=== PATIENT | female | born 1980 | race Caucasian/White ===

== ENCOUNTER 2019-02-10 19:33 | Inpatient (IN) | payer OTHER ==
[~2019-02-10] VITALS: Ht 157.5 cm; Wt 57.0 kg
[~2019-02-10 19:33] MED LIST: BEN25 PO; HC1C30 TOP
[2019-02-10] MEDS ORDERED: SODIUM CHLORIDE 0.9% 1L BAG IV* STA (19:46)
[2019-02-10] MEDS ORDERED: ACETAMINOPHEN 500 MG TAB PO STA (19:46)
[2019-02-10] MEDS ORDERED: KETOROLAC 15 MG INJ IV STA (19:46)
[2019-02-10] MEDS ORDERED: ONDANSETRON 4 MG INJ IV STA (19:55)
[2019-02-10] MEDS ORDERED: HYDROmorphONE 2 MG/ML SYG IV STA (19:55)
[2019-02-10] MEDS ORDERED: PIPER-TAZO 3.375 GM IV (PMX) 100 ML IVPB ONE (20:00)
--- NOTE | 2019-02-10 20:25 | ERD ---
ER Documentation Chief Complaint Chief Complaint LOWER RIGHT PELVIC PAIN X 2 DAYS, SPOTTING HPI 38-year-old female presents to the emergency room with right lower quadrant abdominal pelvic pain for approximately 1 day. Patient describes a mild vague abdominal discomfort yesterday. Today much more significant right lower quadrant abdominal pain that is 10 out of 10 without migratory symptoms. Patient describes no dysuria urgency or frequency. Mild vaginal spotting but no vaginal discharge. She denies any flank pain or colicky pain. ROS All systems reviewed and are negative except as per history of present illness. Medications Home Meds Discontinued Scripts Hydrocortisone* Topical (Hydrocortisone* Topical) 1%-28.35 Gm Cream..g., 1 APPLIC TOP Q6 PRN for ITCHING, #1 TUB Prov:ELLIEGRACIADAVID C 09/03/15 Diphenhydramine Hcl* (Benadryl*) 25 Mg Cap, 25 MG PO Q6, #30 CAP Prov:ELLIE,DAVID C 09/03/15 Allergies Allergies: Coded Allergies: No Known Allergy (Unverified , 02/10/19) PMhx/Soc Medical and Surgical Hx: pt denies Surgical Hx History of Surgery: No Anesthesia Reaction: No Hx Neurological Disorder: No Hx Respiratory Disorders: No Hx Cardiac Disorders: Yes (HTN ) Hx Psychiatric Problems: No Hx Miscellaneous Medical Probl: No Hx Alcohol Use: Yes (ETOH OCCASIONALLY ) Hx Substance Use: Yes (METHAMPHETAMINE DAILY ) Hx Tobacco Use: Yes (CIGARETTES DAILY ) Smoking Status: Current every day smoker FmHx Family History: No diabetes Physical Exam Vitals Vital Signs Date Temp Pulse Resp B/P (MAP) Pulse Ox O2 O2 Flow FiO2 Time Delivery Rate 02/10/19 98.1 97 15 128/93 100 Room Air 23:25 (105) 02/10/19 103.1 20 137/89 99 20:50 (105) 02/10/19 103.1 124 20 137/89 99 19:42 (105) Physical Exam General: Very uncomfortable, diaphoretic Head: Normocephalic, atraumatic. Eyes: Pupils equally reactive, EOM intact ENT: Moist mucous membranes Neck: Supple, no lymphadenopathy Respiratory: Lungs clear bilaterally, no distress Cardiovascular: Tachycardia, no murmurs, rubs, or gallops Abdominal: Soft, focal tenderness of the right lower quadrant of the abdomen near McBurney's point possibly slightly inferior to, voluntary guarding Back: No CVAT : Deferred MSK: No edema, no unilateral swelling, 5/5 strength Neurologic: Alert and oriented, moving all extremities, normal speech, no focal weakness, no cerebellar signs Skin: No rash Psych: Normal mood Result Diagram: 02/10/19195502/10/191955 Results 24 hrs Laboratory Tests Test 02/10/19 19:56 02/10/19 19:57 02/10/19 20:03 02/10/19 22:30 White Blood Count 19.6 10^3/ul Red Blood Count 6.69 10^6/ul Hemoglobin 12.2 g/dl Hematocrit 42.2 % Mean Corpuscular 63.1 fl Volume Mean Corpuscular 18.2 pg Hemoglobin Mean Corpuscular 28.9 g/dl Hemoglobin Concen t Red Cell 21.1 % Distribution Width Platelet Count 327 10^3/UL Mean Platelet 8.9 fl Volume Immature 0.900 % Granulocytes % Neutrophils % 86.9 % Lymphocytes % 5.5 % Monocytes % 5.5 % Eosinophils % 0.7 % Basophils % 0.5 % Nucleated Red 0.0 /100WBC Blood Cells % Immature 0.180 10^3/ul Granulocytes # Neutrophils # 17.0 10^3/ul Lymphocytes # 1.1 10^3/ul Monocytes # 1.1 10^3/ul Eosinophils # 0.1 10^3/ul Basophils # 0.1 10^3/ul Nucleated Red 0.0 10^3/ul Blood Cells # Prothrombin Time 12.8 Sec Prothrombin Time 1.0 Ratio INR International 0.95 Normalized Ratio Activated 29.1 Sec Partial Thrombopl ast Time Sodium Level 138 mmol/L Potassium Level 4.1 mmol/L Chloride Level 98 mmol/L Carbon Dioxide 27 mmol/L Level Anion Gap 13 Blood Urea 11 mg/dl Nitrogen Creatinine 0.84 mg/dl Est Glomerular > 60 mL/min Filtrat Rate mL/min Glucose Level 120 mg/dl Lactic Acid Level 1.6 mmol/L 1.0 mmol/L Calcium Level 9.7 mg/dl Total Bilirubin 0.6 mg/dl Direct Bilirubin 0.00 mg/dl Indirect 0.6 mg/dl Bilirubin Aspartate Amino 20 IU/L Transf (AST/SGOT) Alanine 16 IU/L Aminotransferase (ALT/SGPT) Alkaline 131 IU/L Phosphatase Troponin I < 0.012 ng/ml Total Protein 8.3 g/dl Albumin 4.5 g/dl Globulin 3.80 g/dl Albumin/Globulin 1.18 Ratio Serum HCG, NEGATIVE Qualitative Urine Color YELLOW Urine Clarity CLOUDY Urine pH 7.0 Urine Specific 1.030 Orrick Urine Ketones NEGATIVE mg/dL Urine Nitrite POSITIVE mg/dL Urine Bilirubin NEGATIVE mg/dL Urine 1+ mg/dL Urobilinogen Urine Leukocyte TRACE Nela/ul Esterase Urine Microscopic > 182 /HPF RBC Urine Microscopic 20 /HPF WBC Urine Squamous FEW /HPF Epithelial Cells Urine Bacteria FEW /HPF Urine Mucus MANY /HPF Urine Hemoglobin 3+ mg/dL Urine Glucose NEGATIVE mg/dL Urine Total 2+ mg/dl Protein POC Beta HCG, NEGATIVE Qualitative Current Medications Medications Dose Sig/Mitali Start Time Status Last (Trade) Ordered Route PRN Stop Time Admin Dose Reason Admin Sodium 1,700 ml BOLUS OVER 2 02/10/19 DC 02/10/19 Chloride HOURS STAT 19:46 20:13 (NS) IV* 02/10/19 19:48 1,000 mg ONCE STAT 02/10/19 DC Acetaminophen PO 19:46 (Tylenol 02/10/19 19:48 Tab) Ketorolac 15 mg ONCE STAT 02/10/19 DC 02/10/19 Tromethamine IV 19:46 20:12 (Toradol) 02/10/19 19:48 Piperacillin 100 ml @ ONCE ONCE 02/10/19 DC 02/10/19 Sod/ 200 mls/hr IVPB 20:00 20:13 Tazobactam 02/10/19 20:29 Sod 1 mg ONCE STAT 02/10/19 DC 02/10/19 Hydromorphone IV 19:55 20:13 HCl 02/10/19 19:56 (Dilaudid) Ondansetron 4 mg ONCE STAT 02/10/19 DC 02/10/19 HCl (Zofran IV 19:55 20:13 Inj) 02/10/19 19:56 1 mg ONCE ONCE 02/10/19 DC Hydromorphone IV 23:09 HCl 02/10/19 23:10 (Dilaudid) Ampicillin 100 ml @ ONCE ONCE 02/10/19 100 mls/hr IVPB 23:30 02/11/19 00:29 Clindamycin 50 ml @ 50 ONCE IVPB 02/10/19 HCl/ mls/hr 23:30 Dextrose 02/11/19 00:29 Gentamicin 102.8 ml @ ONCE ONCE 02/10/19 Sulfate 112 102.8 mls/ IVPB 23:30 mg/ Sodium hr 02/11/19 00:29 Chloride Ondansetron 4 mg BRIDGE ORDER 02/10/19 HCl (Zofran PRN IV 23:30 Inj) NAUSEA/VOMITI 02/11/19 23:29 NG 650 mg ER BRIDGE 02/10/19 Acetaminophen PRN PO 23:30 (Tylenol .MILD PAIN 02/11/19 23:29 Tab) 1-3 OR TEMP Procedures/MDM EKG, MONITORS, & DIAGNOSTIC IMAGING: EKG: I reviewed and interpreted a 12-lead EKG. Rhythm: Sinus tachycardia ST Changes: No contiguous ST segment elevations T waves: No contiguous T wave inversions Impression: No evidence of acute cardiac ischemia Chest x-ray: I reviewed and interpreted a 1 view of the chest Mediastinum: No enlargement Cardiac silhouette: No cardiomegaly Airspace: Clear lung kirk bilaterally without evidence of pneumothorax Bones: No evidence of fracture CT abdomen and pelvis: IMPRESSION: Trace pelvic free fluid. Otherwise no acute abnormality identified within the abdomen and pelvis. A normal appendix is identified. US pelvis IMPRESSION: Large complex multi septated tubular structure in the right adnexa, between the right ovary and the uterus, suspicious for a dilated fallopian tube. The findings may represent inflammatory disease and a tubo-ovarian abscess. Moderate amount of free fluid in the pelvis. Further evaluation with pelvic MRI with contrast is recommended. LAB INTERPRETATION: I reviewed the laboratory testing and it shows leukocytosis, normal lactic acid MEDICAL DECISION MAKING: Patient presents with fever, right lower quadrant abdominal pain. Patient has Sirs criteria with potential source of infection. Code sepsis was initiated. Differential is broad but given vague abdominal pain yesterday and pain and fever today to the right lower quadrant strong concern for appendicitis versus perforation. Empiric Zosyn provided. Consider possible ovarian process but less likely cyst or torsion. Patient denies any vaginal discharge, PID is possible but unlikely in this case. Consider possible renal process such as acute pyelonephritis but focal pain to the right lower quadrant suggest more acute intra-abdominal process such as appendicitis. For this reason I will proceed with CT rather than pelvic ultrasound imaging. ER COURSE: * 30 cc/kg bolus of saline provided, blood cultures prior to Zosyn. Antipyretics and pain control medication provided. * The patient's CAT scan showed no evidence of acute appendicitis. This prompted pelvic ultrasound to evaluate for pelvic process such as PID or TOA. * Ultrasound shows evidence of TOA. Pelvic examination shows right adnexal tenderness. Cultures have been sent. * PATROL SERGEANT on-call, Dr. Muir was notified. He recommends transition to triple therapy including ampicillin, clindamycin, gentamicin. Initial dosing in the ER has been ordered. Patient received repeat dosing of pain medication. Inpatient hospitalization appropriate. CONSULTATION: None DISPOSITION PLAN: Accepting care team and consultations: I discussed the current laboratory data, diagnostic imaging and emergency care p rovided. Admitting team: Dr Smith Admitting team indication: Insurance directed Sepsis Documentation: Patient's infectious symptoms have not stabilized and the patient is at risk of rapid decompensation. The patient will be admitted for careful hydration, antibiotic therapy, and infectious source control. SEVERE SEPSIS CRITERIA: Infectious source: Tubo-ovarian abscess End organ damage indicated by: None indicated currently SEPSIS MANAGEMENT Time of recognition of sepsis: Upon MD assessment. Time of recognition of severe sepsis: No severe sepsis at this time. Time of recognition of septic shock: No septic shock at this time. 3 HOUR BUNDLE Blood cultures x 2 before broad-spectrum antibiotics: Yes 30 ml/kg NS bolus completed Initial lactate less than 2 Repeat lactate less than 2 SEPTIC SHOCK ASSESSMENT: No lactic acid > 4.0 No persistent hypotension (SBP < 90 or 40 mmHg drop, MAP < 65) despite 30 mL/kg IV fluid bolus VOLUME REASSESSMENT FOR SEPTIC SHOCK: The patient does not meet criteria for septic shock in the emergency department at this time PERSISTENT HYPOTENSION TREATMENT: Comfort care no Central line not Required Vasopressor started not required I considered further perfusion assessment with CVP measurement, SCVO2, bedside ultrasound volume assessment, passive leg raise, trial of further fluid bolus. And proceeded with 30 ml/kg fluid bolus of NSS, broad spectrum antibiotics, and admission. CRITICAL CARE Critical care time 35 minutes Emergent fluid management while maintaining close respiratory support. Provision of immediate and broad-spectrum antibiotic therapy. Simultaneous assessment for possible sources in order to direct targeted therapy. Consideration for invasive and chemical support to prevent cardiopulmonary collapse. Critical care time is independent of procedures performed. Departure Diagnosis: Primary Impression: Right tubo-ovarian abscess Additional Impressions: Sepsis Sepsis type: sepsis due to unspecified organism Qualified Codes: A41.9 - Sepsis, unspecified organism Acute pain in female pelvis Condition: Stable SAVANNA PEREIRA MD Feb 10, 2019 20:25
[2019-02-10] MEDS ORDERED: HYDROmorphONE 1 MG/ML SYG IV ONE (23:09)
[2019-02-10] MEDS ORDERED: AMPICILLIN 2 GM/NS (PMX) 100 ML IVPB ONE (23:30)
[2019-02-10] MEDS ORDERED: ACETAMINOPHEN 325 MG TAB PO PRN (23:30)
[2019-02-10] MEDS ORDERED: ONDANSETRON 4 MG INJ IV PRN (23:30)
[2019-02-10] MEDS ORDERED: CLINDAMYCIN 900 MG/D5W (PMX) 50 ML IVPB SCH (23:30)
[2019-02-10] MEDS ORDERED: SOD CHLORIDE 0.9% IVPB ONE (23:30)
[2019-02-10] MEDS ORDERED: GENTAMICIN IVPB ONE (23:30)
[2019-02-11 00:51] VITALS: Ht 157.5 cm; Wt 57.0 kg
[2019-02-11 00:52] VITALS: BP 118/65; PULSE 99; RESP 18
[2019-02-11 02:52] VITALS: BP 125/70; PULSE 102; RESP 19
[2019-02-11] MEDS ORDERED: DIPHENHYDRAMINE 50 MG INJ IV PRN (03:00)
[2019-02-11] MEDS ORDERED: morphine 2 MG INJ IV PRN (03:00)
--- NOTE | 2019-02-11 03:26 | HP ---
DATE OF ADMISSION: 02/10/2019 CHIEF COMPLAINT: Pelvic pain. HISTORY OF PRESENT ILLNESS: A 38-year-old female 3, para 3, last menstrual period 01/13/2019 , presented to the emergency department with complaint of a 3-day history of pelvic pain. The patien t denies any nausea or vomiting. PAST MEDICAL HISTORY: Unremarkable. PAST SURGICAL HISTORY: Unremarkable. ALLERGIES: NO KNOWN ALLERGIES. FAMILY HISTORY: Noncontributory. PHYSICAL EXAMINATION: VITAL SIGNS: The patient had temperature of 103.1 in the emergency department. Vital signs stable. HEAD, NECK AND CHEST: Within normal limits. ABDOMEN: Soft. There is tenderness in the lower abdomen. PELVIC: Cervix is closed. EXTREMITIES: Within normal limits. NEUROLOGIC: Within normal limits. DIAGNOSTIC DATA: Workup in the emergency department included a test was negative. WBC 19. 6. A pelvic ultrasound revealed large complex multiseptated tubular structure in the right adnexa be tween right ovary and uterus suspicious for dilated fallopian tube. Findings may represent inflammat ory disease and tubo-ovarian abscess. IMPRESSION: Rule out tubo-ovarian abscess. PLAN: Admit, intravenous ampicillin, gentamicin and clindamycin. MRI of the pelvis for further eval uation of the pelvic mass. Dictated By: ILIANA HANDY/NTS Conf#: [id number] DID#: [id number]
[2019-02-11] MEDS ORDERED: CLINDAMYCIN 900 MG/D5W (PMX) 50 ML IVPB SCH (06:00)
[2019-02-11] MEDS ORDERED: GENTAMICIN 80 MG/NS (PMX) 50 ML IVPB ONE (08:00)
[2019-02-11] MEDS ORDERED: AMPICILLIN/SULB 1.5GM/NS (PMX) 50 ML IVPB SCH (12:00)
[2019-02-12] MEDS ORDERED: IBUP-1542 PO (03:38)
== END 2019-02-11 05:35 | disposition left against medical advice (07) | DRG 759 ==
LOC: E/R 19:33 → MS1 23:23
PROVIDERS: ADMIT Obstetrics & Gynecology; ATTEND Obstetrics & Gynecology
DX: N70.93 Salpingitis and oophoritis, unspecified (principal)
CPT/HCPCS: 36415; 71045; 74176; 76830; 76856; 80053; 81001; 81025; 83605; 84484; 84703; 85025; 85610; 85730; 87040; 87070; 87081; 87086; 87210; 87220; 87591; 93005; 96361; 96374; 96375; J0290; J0295; J1170; J1200; J1580; J1885; J2405; J2543; J7030

== ENCOUNTER 2019-02-11 23:31 | Inpatient (IN) | payer OTHER ==
[~2019-02-11] VITALS: Ht 157.5 cm; Wt 57.0 kg
[2019-02-11] MEDS ORDERED: SODIUM CHLORIDE 0.9% 1L BAG IV* STA (23:48)
[2019-02-11] MEDS ORDERED: GENTAMICIN 80 MG/NS (PMX) 50 ML IVPB STA (23:58)
[2019-02-11] MEDS ORDERED: CLINDAMYCIN 900 MG/D5W (PMX) 50 ML IVPB STA (23:58)
[2019-02-11] MEDS ORDERED: AMPICILLIN 2 GM/NS (PMX) 100 ML IVPB STA (23:58)
[2019-02-12] MEDS ORDERED: ACETAMINOPHEN 325 MG TAB PO PRN
[2019-02-12] MEDS ORDERED: ACETAMINOPHEN 325 MG TAB PO ONE
[2019-02-12] MEDS: ONDANSETRON 4 MG INJ IV STA ×2 (00:17→00:50)
[2019-02-12] MEDS: morphine 4 MG/ML VIAL IV STA ×2 (00:17→00:50)
--- NOTE | 2019-02-12 00:31 | ERD ---
ER Documentation Chief Complaint Chief Complaint right lower abd pain. admitted yesterday but left ama HPI This is a 38-year-old female with a past medical history of hypertension, polysubstance abuse who is presenting with persistent right lower quadrant abdominal pelvic pain over the last 1-2 days. The patient was evaluated yest scarlettay in the emergency department by Dr. Gordillo and was diagnosed with a tubo- ovarian abscess. The patient was given antibiotics and admitted to the gynecology service. Unfortunately, the patient became anxious this morning and left AGAINST MEDICAL ADVICE. The patient continues to endorse significant 10 out of 10 nonradiating right lower quadrant abdominal pain. She has had mild vaginal spotting but no discharge. She does not endorse any dysuria or hematuria or urgency or frequency. She does not endorse any flank pain. She does not endorse any constipation or diarrhea. She does not endorse any black or bloody or tarry stools. The patient does admit to fever and chills today. She is tachycardic in the triage area. The patient has had no headache or vision changes. The patient does not endorse neck or back pain. The patient denies lightheadedness or dizziness. The patient has had no chest pain or trouble breathing. The patient denies nausea or vomiting. The patient has had no focal deficits. The patient has had no weakness or numbness or tingling to the face or extremities. ROS All systems reviewed and are negative except as per history of present illness. Medications Home Meds Discontinued Scripts Hydrocortisone* Topical (Hydrocortisone* Topical) 1%-28.35 Gm Cream..g., 1 APPLIC TOP Q6 PRN for ITCHING, #1 TUB Prov:ELLIE,DAVID C 09/03/15 Diphenhydramine Hcl* (Benadryl*) 25 Mg Cap, 25 MG PO Q6, #30 CAP Prov:ELLIE,DAVID C 09/03/15 Allergies Allergies: Coded Allergies: No Known Allergy (Unverified , 02/10/19) PMhx/Soc History of Surgery: No Anesthesia Reaction: No Hx Neurological Disorder: No Hx Respiratory Disorders: No Hx Cardiac Disorders: Yes (HTN) Hx Psychiatric Problems: No Hx Miscellaneous Medical Probl: No Hx Alcohol Use: Yes (SOCIAL) Hx Substance Use: Yes (METHAMPHETAMINE) Hx Tobacco Use: Yes FmHx Family History: No diabetes Physical Exam Vitals Vital Signs Date Temp Pulse Resp B/P (MAP) Pulse Ox O2 O2 Flow FiO2 Time Delivery Rate 02/12/19 99.9 00:17 02/11/19 100.5 110 18 118/77 99 23:36 (91) Physical Exam Const: Mild distress secondary to pain, well-developed, well-nourished Head: Normocephalic, Atraumatic Eyes: Normal Conjunctiva. Extraocular movements grossly intact. ENT: Normal External Ears, Nose and Mouth. Neck: Full range of motion. No meningismus. Resp: Clear to auscultation bilaterally, No wheezes, rales or rhonchi Cardio: Regular rhythm. Mild tachycardia. No murmurs, rubs or gallops Abd: Soft, non distended. Right lower quadrant abdominal tenderness. No mirian ound or guarding. Normal bowel sounds Skin: No petechiae or rashes Back: No midline tenderness. No CVA tenderness Ext: No cyanosis, or edema Neur: Awake and alert, oriented 4. Cranial nerves intact. No facial droop. Normal strength, sensation and coordination. Psych: Anxious Result Diagram: 02/12/19 0002 02/12/19 0002 Results 24 hrs Laboratory Tests Test 02/11/19 00:13 02/12/19 00:01 02/12/19 00:02 Urine Color GANESH Urine Clarity CLOUDY Urine pH 5.0 Urine Specific [place] 1.026 Urine Ketones NEGATIVE mg/dL Urine Nitrite NEGATIVE mg/dL Urine Bilirubin NEGATIVE mg/dL Urine Urobilinogen NEGATIVE mg/dL Urine Leukocyte Esterase 2+ Nela/ul Urine Microscopic RBC > 182 /HPF Urine Microscopic WBC 59 /HPF Urine Squamous Epithelial Cells MODERATE /HPF Urine Mucus FEW /HPF Urine Hemoglobin 3+ mg/dL Urine Glucose NEGATIVE mg/dL Urine Total Protein 2+ mg/dl Prothrombin Time 13.2 Sec Prothrombin Time Ratio 1.0 INR International 0.99 Normalized Ratio Activated Partial Thromboplast 34.5 Sec Time Lactic Acid Level 1.1 mmol/L White Blood Count 14.1 10^3/ul Red Blood Count 5.61 10^6/ul Hemoglobin 10.1 g/dl Hematocrit 35.2 % Mean Corpuscular Volume 62.7 fl Mean Corpuscular Hemoglobin 18.0 pg Mean Corpuscular 28.7 g/dl Hemoglobin Concent Red Cell Distribution Width 20.5 % Platelet Count 298 10^3/UL Mean Platelet Volume 9.5 fl Immature Granulocytes % 0.700 % Neutrophils % 83.2 % Lymphocytes % 8.6 % Monocytes % 5.7 % Eosinophils % 1.4 % Basophils % 0.4 % Nucleated Red Blood Cells % 0.0 /100WBC Immature Granulocytes # 0.100 10^3/ul Neutrophils # 11.8 10^3/ul Lymphocytes # 1.2 10^3/ul Monocytes # 0.8 10^3/ul Eosinophils # 0.2 10^3/ul Basophils # 0.1 10^3/ul Nucleated Red Blood Cells # 0.0 10^3/ul Sodium Level 141 mmol/L Potassium Level 3.9 mmol/L Chloride Level 103 mmol/L Carbon Dioxide Level 24 mmol/L Anion Gap 14 Blood Urea Nitrogen 9 mg/dl Creatinine 0.74 mg/dl Est Glomerular Filtrat > 60 mL/min Rate mL/min Glucose Level 103 mg/dl Calcium Level 8.9 mg/dl Total Bilirubin 0.3 mg/dl Direct Bilirubin 0.00 mg/dl Indirect Bilirubin 0.3 mg/dl Aspartate Amino 37 IU/L Transf (AST/SGOT) Alanine 28 IU/L Aminotransferase (ALT/SGPT) Alkaline Phosphatase 129 IU/L Troponin I 0.053 ng/ml Total Protein 7.1 g/dl Albumin 3.8 g/dl Globulin 3.30 g/dl Albumin/Globulin Ratio 1.15 Current Medications Medications Dose Sig/Mitali Start Time Status Last (Trade) Ordered Route PRN Stop Time Admin Dose Reason Admin Sodium 1,740 ml BOLUS OVER 2 02/11/19 DC 02/12/19 Chloride HOURS STAT 23:48 00:17 (NS) IV* 02/11/19 23:50 650 mg ONCE ONCE 02/12/19 DC 02/12/19 Acetaminophen PO 00:00 00:17 (Tylenol 02/12/19 00:01 Tab) Morphine 4 mg ONCE STAT 02/11/19 DC 02/12/19 Sulfate IV 23:48 00:50 (morphine) 02/11/19 23:50 Ondansetron 4 mg ONCE STAT 02/11/19 DC 02/12/19 HCl (Zofran IV 23:48 00:50 Inj) 02/11/19 23:50 Ampicillin 100 ml @ ONCE STAT 02/11/19 DC 02/12/19 100 mls/hr IVPB 23:58 00:55 02/12/19 00:57 Gentamicin 50 ml @ ONCE STAT 02/11/19 DC 02/12/19 Sulfate 104 mls/hr IVPB 23:58 00:21 02/12/19 00:26 Clindamycin 50 ml @ 50 ONCE STAT 02/11/19 DC HCl/ mls/hr IVPB 23:58 Dextrose 02/12/19 00:57 Ondansetron 4 mg ER BRIDGE 02/12/19 HCl (Zofran PRN IV 00:00 Inj) NAUSEA/VOMITI 02/12/19 23:59 NG 650 mg ER BRIDGE 02/12/19 Acetaminophen PRN PO 00:00 (Tylenol .MILD PAIN 02/12/19 23:59 Tab) 1-3 OR TEMP Procedures/MDM MDM The patient's presentation warrants further investigation. Previous medical records, if available, were reviewed. LABS The patient's laboratory testing was obtained and reviewed. No emergent treatment was required unless described below. CBC: Leukocytosis, concerning for an infectious pathology. Microcytic anemia, nonemergent. Normal platelet count. Chemistry: No E/o severe acidosis or alkalosis or renal failure or liver dise ase or diabetic ketoacidosis PT/INR: No E/o significant coagulopathy Lactate: No E/o severe sepsis Urine: Pyuria and hematuria, potentially from vaginal bleeding. EKG EKG read by me: Rate/Rhythm: Sinus tachycardia at 105 bpm Intervals: Normal Apex: Normal Impression: Nonspecific repolarization changes without evidence of STEMI. Sinus tachycardia. IMAGING Imaging and Radiology interpretation reviewed. CXR 1V Interpreted by me Soft Tissue: No acute abnormalities Bones: No acute abnormalities Mediastinum/Cardiac Silhouette: Unremarkable. No widened mediastinum. Lungs: No acute abnormalities. Normal pulmonary vasculature. No pneumothorax. No pulmonary edema. Clear costal diaphragmatic angles. No pleural effusions. No opacity or consolidations concerning for pneumonia. US Pelvis on 02/10/2019 FINDINGS: The uterus is normal in size with a normal appearance of the myometrium. The uterus measures 7.5 x 4.4 x 4.5 cm. There is a Nabothian cysts in the cervix. The endometrial stripe is homogeneous in appearance and has the thickness of 11 mm. The right ovary measures 3.12 1.7 x 2.8 cm. Normal Doppler flow is identified. There is a large complex multiseptated tubular structure in the right adnexa, measuring 4.3 x 4.1 cm. The left ovary was not seen. There is a moderate amount of free fluid in the pelvis. IMPRESSION: Large complex multi septated tubular structure in the right adnexa, between the right ovary and the uterus, suspicious for a dilated fallopian tube. The findings may represent inflammatory disease and a tubo-ovarian abscess. Moderate amount of free fluid in the pelvis. Further evaluation with pelvic MRI with contrast is recommended. Electronically viewed and signed by Pavan Carr MD, MD on 02/10/2019 23:01 CT Abd/Pelvis on 02/10/2019 FINDINGS: Evaluation of the lung bases demonstrates mild left basilar atelectasis. Abdomen: The liver is normal in size. There is no focal mass or dilatation of the biliary tree. The gallbladder is not distended. The spleen, pancreas and bilateral adrenal glands are within normal limits. Bilateral kidneys are normal in size with no contour deforming mass identified. There is no radiopaque renal or ureteral calculus identified. There is no hydronephrosis or hydroureter. There is no retroperitoneal adenopathy. The abdominal aorta is of normal caliber. There is no abnormal bowel wall thickening or distension. There is no bowel obstruction or free air. A normal appendix is identified. There is no diverticulosis or diverticulitis. There is no ascites. Pelvis: The bladder is unremarkable. The uterus and adnexa are within normal limits. There is trace pelvic free fluid. There is no significant pelvic adenopathy. Evaluation of the osseous structures demonstrates no suspicious lytic or blastic lesion. IMPRESSION: Trace pelvic free fluid. Otherwise no acute abnormality identified within the abdomen and pelvis. A normal appendix is identified. Electronically viewed and signed by Migue Linn MD, MD on 02/10/2019 20:38 TREATMENT/DISPOSITION The patient has a known tubo-ovarian abscess. She left AGAINST MEDICAL ADVICE this morning, but she fortunately return to the hospital. She will require admission to the gynecology service for further assessment of this. The trade specialist was consulted. Dr. Sadler recommended that the patient be given ampicillin, clindamycin and gentamicin in the emergency department. The patient is febrile and tachycardic. I am concerned about sepsis. A full septic workup was completed. In speaking with the trade specialist, no immediate imaging is warranted. She came down to the emergency department to evaluate the patient and will order any subsequent imaging as needed. SEPSIS NOTE SIRS Criteria: Tachycardia, fever Infectious source: Tubo-ovarian abscess End organ damage indicated by: None SEPSIS MANAGEMENT Time to recognize sepsis: Upon arrival. Time to recognize severe sepsis: No severe sepsis at this time. Time to recognize septic shock: No septic shock at this time. 3 HOUR BUNDLE Blood cultures x 2 before abx: Yes 30 ml/kg NS bolus completed Initial lactate 1.1 Repeat lactate not indicated SEPTIC SHOCK ASSESSMENT: NO lactic acid > 4.0 NO persistent hypotension (SBP < 90 or 40 mmHg drop, MAP < 65) despite 30 L/kg IV fluid bolus CRITICAL CARE Critical care time 35 minutes Emergent fluid management while maintaining close respiratory support. Provision of immediate and broad-spectrum antibiotic therapy. Simultaneous assessment for possible sources in order to direct targeted therapy. Consideration for invasive and chemical support to prevent cardiopulmonary collapse. Critical care time is independent of procedures performed. ADMISSION At this time, I feel that the patient requires admission for further evaluation and management. The patient will be admitted to the gynecology service. The patient was accepted by Dr. Sadler at 12:00AM on 02/12/2019. Disclaimer: Inadvertent spelling and grammatical errors are likely due to EHR/dictation software use and do not reflect on the overall quality of patient care. Note that the electronic time recorded on this note does not necessarily reflect the actual time of the patient encounter. Departure Diagnosis: Primary Impression: Tubo-ovarian abscess Additional Impressions: Sepsis Sepsis type: sepsis due to unspecified organism Qualified Codes: A41.9 - Sepsis, unspecified organism Tachycardia Fever Fever type: unspecified Qualified Codes: R50.9 - Fever, unspecified Right lower quadrant abdominal pain Leukocytosis Leukocytosis type: unspecified Qualified Codes: D72.829 - Elevated white blood cell count, unspecified Microcytic anemia Pyuria Hematuria Hematuria type: unspecified type Qualified Codes: R31.9 - Hematuria, unspecified Condition: Serious NICKY HIGH MD Feb 12, 2019 00:30
--- NOTE | 2019-02-12 01:30 | HP ---
Date/Time of Note Date/Time of Note DATE: 02/12/19 TIME: : Assessment/Plan VTE Prophylaxis SCD applied (from Nsg): No SCD contraindicated: low risk/ambulating Pharmacological prophylaxis: other Pharm contraindication: low risk/ambulating Lines/Catheters IV Catheter Type (from Nrsg): Saline Lock Central line still needed: No Urinary Cath still in place: No Assessment/Plan Hospital Course Lower abdominal pain, cervical motion tenderness, ultrasound consistent with free fluid in pyosalpinx Exam consistent with PID/hydrosalpinx Patient will be admitted for treatment of PID Be started on triple antibiotics. IV clindamycin/gentamicin/ampicillin STD screening, occluding HIV. Patient appears high risk. Labs requested Urine will be sent for gonorrhea chlamydia screening as well Pain control Antiemetic as needed Plan of care discussed with the patient. We will continue to follow-up Problems: (1) Tubo-ovarian abscess Status: Acute (2) PID (acute pelvic inflammatory disease) Status: Acute (3) Right lower quadrant abdominal pain Status: Acute (4) Sepsis Status: Acute Qualifiers: Sepsis type: sepsis due to unspecified organism Qualified Codes: A41.9 - Sepsis, unspecified organism Result Diagram: 02/12/19 0002 02/12/19 0002 Results 24hrs Laboratory Tests Test 02/12/19 00:01 02/12/19 00:02 Prothrombin Time 13.2 Prothrombin Time Ratio 1.0 INR International Normalized Ratio 0.99 Activated Partial Thromboplast Time 34.5 Lactic Acid Level 1.1 White Blood Count 14.1 #H Red Blood Count 5.61 H Hemoglobin 10.1 L Hematocrit 35.2 L Mean Corpuscular Volume 62.7 L Mean Corpuscular Hemoglobin 18.0 L Mean Corpuscular Hemoglobin Concent 28.7 L Red Cell Distribution Width 20.5 H Platelet Count 298 Mean Platelet Volume 9.5 Immature Granulocytes % 0.700 H Neutrophils % 83.2 H Lymphocytes % 8.6 L Monocytes % 5.7 Eosinophils % 1.4 Basophils % 0.4 Nucleated Red Blood Cells % 0.0 Immature Granulocytes # 0.100 H Neutrophils # 11.8 H Lymphocytes # 1.2 Monocytes # 0.8 Eosinophils # 0.2 Basophils # 0.1 Nucleated Red Blood Cells # 0.0 Sodium Level 141 Potassium Level 3.9 Chloride Level 103 Carbon Dioxide Level 24 Anion Gap 14 H Blood Urea Nitrogen 9 Creatinine 0.74 Est Glomerular Filtrat Rate mL/min > 60 Glucose Level 103 Calcium Level 8.9 Total Bilirubin 0.3 Direct Bilirubin 0.00 Indirect Bilirubin 0.3 Aspartate Amino Transf (AST/SGOT) 37 Alanine Aminotransferase (ALT/SGPT) 28 Alkaline Phosphatase 129 H Troponin I 0.053 Total Protein 7.1 # Albumin 3.8 Globulin 3.30 H Albumin/Globulin Ratio 1.15 HPI/ROS Admit Date/Time Admit Date/Time February 12, 2019 Hx of Present Illness I was consulted by ED attending to evaluate and admit this 38-year-old female with a known history of PID/tubo-ovarian abscess that was presented yesterday to the hospital with complaint of abdominal pain. She received IV antibiotics however patient decided to leave AMA. Patient presented back after discharge from the hospital due to continuous and worsening of abdominal pain. She denies any fever or chills. Reports has been feeling pain more in the left than right and feeling some bloating symptoms.. Per patient symptoms that started 2 days ago which brought her to the hospital yesterday. She had a CT of abdomen and pelvis as well as pelvic ultrasound that was essentially unremarkable for evidence of some free fluid in the pelvis as well as pyosalpinx. Patient reports some nausea. ROS Subjective hx not possible: other Constitutional: nausea, poor po; No no complaints, No improved, No chills, No diaphoresis, No disoriented, No fatigue, No febrile, No weight change, No other Eyes: no complaints; No pain, No discharge, No redness, No visual change, No other ENT: no complaints; No bleeding, No pain, No congestion, No discharge, No dysphagia, No sore throat, No other Respiratory: No no complaints, No pain, No cough, No pleuritic pain, No shortness of breath, No sputum, No wheezing, No other Cardiovascular: No no complaints, No chest pain, No edema, No lightheadedness, No orthopenea, No palpitations, No paroxysmal nocturnal dyspnea, No other Gastrointestinal: pain Genitourinary: other (She reports pain in the lower abdomen more in the left side than right); No no complaints, No bleeding, No dysuria, No discharge, No flank pain, No hematuria Skin: No no complaints, No bruising, No erythema, No laceration, No pruritis, No rash, No skin lesions, No other Neurologic: No no complaints, No confusion, No dizziness, No focal-weakness, No headache, No syncope, No seizure, No other Endocrine: No no complaints, No polyuria, No polydypsia, No dry skin, No temp intolerance, No weight change, No other Lymphatic: No no complaints, No adenopathy, No tender nodes, No lymphadema, No other Psychological: anxiety Immunologic: No no complaints, No immunodeficiency, No pruritis, No rhinitis, No urticaria, No other PMH/Family/Social Past Medical History Past medical history: Denies any medical problems Admits to substance abuse. Using methamphetamine. She is a daily smoker as well Past surgical history: Denies any surgery in the past allergy history: NKDA Social history: Daily smokes, uses alcohol socially. 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 No partner. Denies any history of STD or PID in the past Has not been using any contraception LMP: February 10, 2019 Cycles regular, q. 28 days last about 7 days Last Pap smear 2017 normal Denies any prior history of abnormal Pap smear Medications Current Medications Ondansetron HCl (Zofran Inj) 4 mg ER BRIDGE PRN IV NAUSEA/VOMITING; Start 02/12/19 at 00:00; Stop 02/12/19 at 23:59 Acetaminophen (Tylenol Tab) 650 mg ER BRIDGE PRN PO .MILD PAIN 1-3 OR TEMP; Start 02/12/19 at 00:00; Stop 02/12/19 at 23:59 Coded Allergies: No Known Allergy (Unverified , 02/10/19) Past Surgical History Past Surgical Hx: no surgical history Family History Significant Family History: no pertinent family hx Social History Alcohol Use: occasionally Smoking Status: Current every day smoker Drug Use: other (Methamphetamine) Exam/Review of Systems Vital Signs Vitals Vital Signs Date Temp Pulse Resp B/P (MAP) Pulse Ox O2 O2 Flow FiO2 Time Delivery Rate 02/12/19 99.9 00:17 02/11/19 110 18 118/77 99 23:36 (91) Exam Constitutional: alert, oriented, well developed Psych: no complaints, anxiety Head: normocephalic, atraumatic Eyes: nl conjunctiva ENMT: nl external ears & nose Neck: supple Respiratory: clear to auscultation, normal air movement Cardiovascular: regular rate and rhythm, nl pulses Gastrointestinal: soft, tender (Tenderness in both lower abdomen, more in the left than right. No rebound tenderness, no guarding, no rigidity, soft abdomen., No abdominal distention) Genitourinary - Female: other (External genitalia, within normal limits speculum examination attempted however patient did not tolerate speculum exam. Minimal amount of blood in the vault. Speculum removed. Bimanual examination, there is cervical motion tenderness. There is tenderness to palpation of adnexa and uterus and both sides.) Extremities: normal pulses Neurological: JINRIKSHA DRIVER II-XII intact, nl mental status, nl speech, nl strength Skin: nl turgor Additional Comments PROCEDURE: US Pelvis. CLINICAL INDICATION: pelvic pain TECHNIQUE: Multiple sonographic images of the pelvis were obtained utilizing transabdominal and endovaginal technique. The images were reviewed on a PACS workstation. COMPARISON: CT 02/10/2019 FINDINGS: The uterus is normal in size with a normal appearance of the myometrium. The uterus measures 7.5 x 4.4 x 4.5 cm. There is a Nabothian cysts in the cervix. The endometrial stripe is homogeneous in appearance and has the thickness of 11 mm. The right ovary measures 3.12 1.7 x 2.8 cm. Normal Doppler flow is identified. There is a large complex multiseptated tubular structure in the right adnexa, measuring 4.3 x 4.1 cm. The left ovary was not seen. There is a moderate amount of free fluid in the pelvis. RPTAT: AA IMPRESSION: Large complex multi septated tubular structure in the right adnexa, between the right ovary and the uterus, suspicious for a dilated fallopian tube. The findings may represent inflammatory disease and a tubo-ovarian abscess. Moderate amount of free fluid in the pelvis. Further evaluation with pelvic MRI with contrast is recommended. PROCEDURE: CT Abdomen and pelvis without contrast. CLINICAL INDICATION: Abdominal pain. TECHNIQUE: CT scan of the abdomen and pelvis was performed on a multi- detector high-resolution CT scanner. Contiguous axial images were obtained from the lung bases to the ischial tuberosities without intravenous contrast. Coronal and sagittal reformatted images were also obtained. Images were reviewed on the PACS workstation. DICOM images are available. One or more of the following dose reduction techniques were used: - Automated exposure control. - Adjustment of the mA and/or kV according to patient size. - Use of iterative reconstruction technique. Exam CTD/vol = 5.31 mGy. Total exam DLP = 298.76 mGy-cm. COMPARISON: None. FINDINGS: Evaluation of the lung bases demonstrates mild left basilar atelectasis. Abdomen: The liver is normal in size. There is no focal mass or dilatation of the biliary tree. The gallbladder is not distended. The spleen, pancreas and bilateral adrenal glands are within normal limits. Bilateral kidneys are normal in size with no contour deforming mass identified. There is no radiopaque renal or ureteral calculus identified. There is no hydronephrosis or hydroureter. There is no retroperitoneal adenopathy. The abdominal aorta is of normal caliber. There is no abnormal bowel wall thickening or distension. There is no bowel obstruction or free air. A normal appendix is identified. There is no diverticulosis or diverticulitis. There is no ascites. Pelvis: The bladder is unremarkable. The uterus and adnexa are within normal limits. There is trace pelvic free fluid. There is no significant pelvic adenopathy. Evaluation of the osseous structures demonstrates no suspicious lytic or blastic lesion. IMPRESSION: Trace pelvic free fluid. Otherwise no acute abnormality identified within the abdomen and pelvis. A normal appendix is identified. JOSE STILES MD Feb 12, 2019 01:30
[2019-02-12] MEDS ORDERED: IBUP-1542 PO (03:38)
[2019-02-12 07:39] VITALS: BP 119/86; PULSE 91; RESP 18
[2019-02-12] MEDS ORDERED: ONDANSETRON 4 MG INJ IV PRN ×2 (10:30)
[2019-02-12] MEDS ORDERED: HYDROCODONE/APAP (5/325) TAB PO PRN (10:30)
[2019-02-12] MEDS ORDERED: morphine 4 MG/ML VIAL IV PRN (10:30)
[2019-02-12] MEDS ORDERED: GENTAMICIN 80 MG/NS (PMX) 50 ML IVPB SCH (10:30)
[2019-02-12] MEDS ORDERED: DEXTROSE 5%-LR 1,000 ML IV SCH (10:30)
[2019-02-12 11:41] VITALS: Ht 157.5 cm; Wt 57.0 kg
[2019-02-12] MEDS ORDERED: AMPICILLIN 2 GM/NS (PMX) 100 ML IVPB SCH (12:00)
[2019-02-12] MEDS ORDERED: CLINDAMYCIN 900 MG/D5W (PMX) 50 ML IVPB SCH (14:00)
--- NOTE | 2019-02-12 15:20 | QN ---
Documentation Comment Called by RN that patient is trying to leave AGAINST MEDICAL ADVICE. Presented to the floor. I explained to the patient significant risk of complications including septicemia risk for admission to ICU, and the complications of widespread infection including but not limited to future morbidities as well as in case of incomplete treatment. Patient strongly desired to leave AGAINST MEDICAL ADVICE although she verbalized understanding all the above risks. She signed AMA form. This discussion was done in presence of nursing staff and her boyfriend. JOSE STILES MD Feb 12, 2019 15:19
== END 2019-02-12 12:31 | disposition left against medical advice (07) | DRG 757 ==
LOC: E/R 23:31 → MS1 02-12 00:01 → EDBEDREQSVC 02-12 00:50
PROVIDERS: ADMIT Obstetrics & Gynecology Obstetrics; ATTEND Obstetrics & Gynecology Obstetrics
DX: N70.93 Salpingitis and oophoritis, unspecified (principal); A41.9 Sepsis, unspecified organism; D64.9 Anemia, unspecified; N73.9 Female pelvic inflammatory disease, unspecified
CPT/HCPCS: 36415; 71045; 80053; 81001; 83605; 84484; 85025; 85610; 85730; 87040; 87086; 93005; J0290; J1580; J2270; J2405; J7030; J7121